=== PATIENT | female | born 1960 | race Caucasian/White ===

== ENCOUNTER 2023-02-15 06:55 | Day surgery (SDC) | payer MEDICAID ==
[~2023-02-15] VITALS: Ht 160 cm; Wt 127.0 kg
[2023-02-15] VITALS (11 sets, daily range): BP systolic 110–131; BP diastolic 60–78; PULSE 67–85; RESP 12–17; O2SAT 93–98
[~2023-02-15 06:55] MED LIST: APIX5TAB PO; CELE200C PO; CETI-83 OR; CHOL1CAP58 PO; GABA800T97 PO; IBUP-1456 PO; LISI10TA34 PO
[2023-02-15] MEDS ORDERED: ANGIOMAX 250 MG VIAL IV ONE (07:47)
[2023-02-15] MEDS ORDERED: LIDOCAINE 2%HCL (LOCAL ANESTH.) INJ 20ML MDV ONE (07:48)
[2023-02-15] MEDS ORDERED: MIDAZOLAM HCL 2MG/2ML 2ml VIAL (1mg/ml) ONE (07:48)
[2023-02-15] MEDS ORDERED: fentaNYL CITRATE 100 MCG/2 ML VL ONE (07:48)
[2023-02-15] MEDS ORDERED: HEPARIN SODIUM (PORCINE) 5000 UNITS/ML 1ML VIAL ONE (07:48)
[2023-02-15] MEDS ORDERED: VERAPAMIL 2.5MG/ML INJ 2ML VIAL IV ONE (07:48)
[2023-02-15] MEDS ORDERED: IODIXANOL 320MG/ML 100ML BTL IV ONE ×2 (07:49→07:54)
[2023-02-15] MEDS ORDERED: SODIUM CHL 0.9% 0 ML ONE (07:49)
== END 2023-02-15 13:38 | disposition home or self-care (01) ==
LOC: CATH 06:55
PROVIDERS: ATTEND Internal Medicine Cardiovascular Disease
DX: R94.39 Abnormal result of other cardiovascular function study (principal); I27.20 Pulmonary hypertension, unspecified; E66.01 Morbid (severe) obesity due to excess calories; Z86.718 Personal history of other venous thrombosis and embolism; I10 Essential (primary) hypertension; M19.90 Unspecified osteoarthritis, unspecified site; Z79.899 Other long term (current) drug therapy; I47.20 Ventricular tachycardia, unspecified; I47.10 Supraventricular tachycardia, unspecified; I49.3 Ventricular premature depolarization
CPT/HCPCS: 93460; C1725; C1757; C1769; C1894; J1644; J2250; J3010; Q9967; 99152; 99153